=== PATIENT | female | born 1990 | race Caucasian/White ===

== ENCOUNTER 2017-06-26 18:37 | Emergency (ER) | payer OTHER ==
--- NOTE | 2017-06-26 19:13 | PDOC ---
History of Present Illness - General Chief Complaint: Headache Stated Complaint: HEAD PAIN/28 WKS Time Seen by Provider: 06/26/17 19:13
[2017-06-26 19:16] VITALS: BMI 28.8
--- NOTE | 2017-06-26 19:17 | PDOC ---
Rapid Medical Evaluation Chief Complaint: Headache Time Seen by Provider: 06/26/17 19:13 Medical Evaluation: 06/26/17 19:14 CC:headache and vomiting 7 months . denies vaginal bleeding/ O: Patient alert ox 3 headache P: I have ordered cbc, cmp, mag, ua, urine culture. patient to the ER for further management of care.
[2017-06-26 20:07] LABS: BASO % 0.4 % (0-2.0); EOS % 0.9 % (0-4.5); HEMATOCRIT 34.6 % (32.4-45.2); HEMOGLOBIN 12.2 GM/dL (10.7-15.3); LYMPH % 20.4 % (8-40); MCH 31.5 pg (25.7-33.7); MCHC 35.2 g/dl (32.0-36.0); MEAN CELL VOLUME 89.7 fl (80-96); MEAN PLT VOLUME 8.1 fl (7.5-11.1); MONO % 7.4 % (3.8-10.2); NEUT % 70.9 % (42.8-82.8); PLATELET COUNT 290 K/MM3 (134-434); RBC 3.86 M/mm3 (3.60-5.2); RDW 13.6 % (11.6-15.6); WHITE BLOOD COUNT 9.8 K/mm3 (4.0-10.0)
[2017-06-26 20:20] LABS: URINE APPEARANCE CLEAR; URINE BILIRUBIN NEGATIVE (<2.0 mg/dL); URINE BLOOD NEGATIVE (NEGATIVE); URINE COLOR STRAW; URINE GLUCOSE (UA) NEGATIVE (NEGATIVE); URINE KETONE NEGATIVE (NEGATIVE); URINE LEUK ESTERASE NEGATIVE (NEGATIVE); URINE NITRITE NEGATIVE (NEGATIVE); URINE PROTEIN NEGATIVE (NEGATIVE); URINE UROBILINOGEN NEGATIVE mg/dL (0.2-1.0)
[2017-06-26 20:20] LABS: ALBUMIN 3.1 g/dl (3.4-5.0); ANION GAP 7 (8-16); BILIRUBIN,TOTAL 0.2 mg/dL (0.2-1.0); BLOOD UREA NITROGEN 6 mg/dL (7-18); CALCIUM 8.5 mg/dL (8.5-10.1); CHLORIDE 109 mmol/L (98-107); CO2 24 mmol/L (21-32); CREATININE 0.4 mg/dL (0.55-1.02); GLUCOSE,RANDOM 83 mg/dL (74-106); POTASSIUM 3.8 mmol/L (3.5-5.1); SGOT/AST 16 U/L (15-37); SGPT/ALT 13 U/L (12-78); SODIUM 140 mmol/L (136-145); TOT PROT 6.9 g/dl (6.4-8.2)
[2017-06-26 20:35] LABS: ALK PHOS 79 U/L (45-117)
--- NOTE | 2017-06-26 21:36 | PDOC ---
History of Present Illness - History of Present Illness Initial Comments: 06/26/17 21:48 The patient is a 26 year old 28 week female who presents for evaluation of headache, nausea, vomiting. The patient reports a throbbing headache that began gradually earlier this morning. She reports subsequent nausea and 1 episode of non-bilious, non-bloody vomiting prompting her presentation to the ED for evaluation. The patient reports that her symptoms have completely resolved on evaluation in the ED and is currently asymptomatic. The patient otherwise denies fevers, chills, SOB, chest pain, abdominal pain, vaginal bleeding, vaginal discharged, or changes with urination or bowel movements. <Dudley Chappell - Last Filed: 06/26/17 21:48> <Nigel Rey - Last Filed: 06/26/17 23:28> - General Chief Complaint: Headache Stated Complaint: HEAD PAIN/28 WKS Time Seen by Provider: 06/26/17 19:13 Past History - Past Medical History COPD: No - Immunization History Immunization Up to Date: Yes - Suicide/Smoking/Psychosocial Hx Smoking History: Never smoked Have you smoked in the past 12 months: No Information on smoking cessation initiated: No Hx Alcohol Use: No Drug/Substance Use Hx: No Substance Use Type: None <Dudley Chappell - Last Filed: 06/26/17 21:48> <Nigel Rey - Last Filed: 06/26/17 23:28> - Past Medical History Allergies/Adverse Reactions: Allergies Allergy/AdvReac Type Severity Reaction Status Date / Time No Known Allergies Allergy Verified 06/26/17 19:16 Home Medications: Ambulatory Orders Vit/Iron Fum/Folic AC [ Tablet] 1 each PO DAILY 06/26/17 Review of Systems - Review of Systems Comments:: 06/26/17 21:54 Constitutional: No fevers, chills, fatigue, malaise HEENT: No Rhinorrhea, nasal congestion, visual changes Cardiovascular: No chest pain, syncope, palpitations, lightheadedness Respiratory: No Cough, SOB, Hemoptysis, Gastrointestinal: Nausea, vomiting. No Abdominal pain, Constipation, Diarrhea, Melena Genitourinary: No Dysuria, Frequency, Urgency, Hesitancy, Hematuria, Flank pain Musculoskeletal: No Myalgia, arthralgia Skin: No rashes, itching, bruising, pallor Neurologic: Headache. No Dizziness, Numbness, Weakness, or Tingling Psychiatric: No Hallucinations. No SI or HI <Dudley Chappell - Last Filed: 06/26/17 21:48> *Physical Exam - Vital Signs Last Vital Signs Temp Pulse Resp BP Pulse Ox 98.6 F 71 18 110/66 98 06/26/17 19:13 06/26/17 19:13 06/26/17 19:13 06/26/17 19:13 06/26/17 19:13 - Physical Exam Comments: 06/26/17 21:54 General Appearance: Nourished. No Apparent Distress HEENT: EOMI, RAYMOND. No Pharyngeal Erythema, Tonsillar Exudate, Tonsillar Erythema Neck: No Cervical Lymphadenopathy Respiratory/Chest: Lungs Clear, Normal Breath Sounds. No Crackles, Rales, Rhonchi, Wheezing Cardiovascular: Regular Rhythm, Regular Rate. No Murmur, Gallops, Rubs Gastrointestinal/Abdominal: Normal Bowel Sounds, Soft. No Guarding, Rebound, Tenderness Musculoskeletal: No CVA Tenderness Extremity: Normal Capillary Refill Integumentary: Normal Color, Dry, Warm Neurologic: mainspring reverse winder II-XII NML intact, Fully Oriented, Alert, Normal Mood/Affect, Normal Response, Motor Strength 5/5. Normal Finger to Nose and Heel to Sunshine <Dudley Chappell - Last Filed: 06/26/17 21:48> - Vital Signs Last Vital Signs Temp Pulse Resp BP Pulse Ox 98.6 F 71 18 110/66 98 06/26/17 19:13 06/26/17 19:13 06/26/17 19:13 06/26/17 19:13 06/26/17 19:13 <Nigel Rey - Last Filed: 06/26/17 23:28> ED Treatment Course - LABORATORY CBC & Chemistry Diagram: 06/26/17 19:27 06/26/17 19:27 - ADDITIONAL ORDERS Additional order review: Laboratory Results 06/26/17 06/26/17 06/26/17 19:27 19:27 19:15 Sodium 140 Potassium 3.8 Chloride 109 H Carbon Dioxide 24 Anion Gap 7 L BUN 6 L Creatinine 0.4 L Creat Clearance w eGFR > 60 Random Glucose 83 Calcium 8.5 Magnesium 2.1 Total Bilirubin 0.2 AST 16 ALT 13 Alkaline Phosphatase 79 Total Protein 6.9 Albumin 3.1 L Beta HCG, Quant 4049.6 Urine Color Straw Urine Appearance Clear Urine pH 7.0 Ur Specific [place] 1.006 Urine Protein Negative Urine Glucose (UA) Negative Urine Ketones Negative Urine Blood Negative Urine Nitrite Negative Urine Bilirubin Negative Urine Urobilinogen Negative Ur Leukocyte Esterase Negative 06/26/17 19:27 RBC 3.86 MCV 89.7 MCHC 35.2 RDW 13.6 MPV 8.1 Neutrophils % 70.9 Lymphocytes % 20.4 Monocytes % 7.4 Eosinophils % 0.9 Basophils % 0.4 <Dudley Chappell - Last Filed: 06/26/17 21:48> - LABORATORY CBC & Chemistry Diagram: 06/26/17 19:27 06/26/17 19:27 - ADDITIONAL ORDERS Additional order review: Laboratory Results 06/26/17 06/26/17 06/26/17 19:27 19:27 19:15 Sodium 140 Potassium 3.8 Chloride 109 H Carbon Dioxide 24 Anion Gap 7 L BUN 6 L Creatinine 0.4 L Creat Clearance w eGFR > 60 Random Glucose 83 Calcium 8.5 Magnesium 2.1 Total Bilirubin 0.2 AST 16 ALT 13 Alkaline Phosphatase 79 Total Protein 6.9 Albumin 3.1 L Beta HCG, Quant 4049.6 Urine Color Straw Urine Appearance Clear Urine pH 7.0 Ur Specific [place] 1.006 Urine Protein Negative Urine Glucose (UA) Negative Urine Ketones Negative Urine Blood Negative Urine Nitrite Negative Urine Bilirubin Negative Urine Urobilinogen Negative Ur Leukocyte Esterase Negative 06/26/17 19:27 RBC 3.86 MCV 89.7 MCHC 35.2 RDW 13.6 MPV 8.1 Neutrophils % 70.9 Lymphocytes % 20.4 Monocytes % 7.4 Eosinophils % 0.9 Basophils % 0.4 <Nigel Rey - Last Filed: 06/26/17 23:28> Medical Decision Making - Medical Decision Making 06/26/17 21:55 The patient is a 26 year old 28 week female who presents for evaluation of headache, nausea, vomiting. Differential includes but is not limited to: Gastroenteritis, Migraine Headache, Infectious, Metabolic derangement. Labs obtained in triage including a cbc, cmp, ua are unremarkable. The patient remains asymptomatic on exam. It is likely her past symptoms were due to a migraine headache. We will PO challenge the patient here in the ED and continue to monitor and reassess. The patient's authorization rep is Dr. Alfredo. <Dudley Chappell - Last Filed: 06/26/17 21:48> *DC/Admit/Observation/Transfer <Dudley Chappell - Last Filed: 06/26/17 21:48> <Nigel Rey - Last Filed: 06/26/17 23:28> Diagnosis at time of Disposition: Headache Qualifiers: Headache type: unspecified Headache chronicity pattern: acute headache Intractability: not intractable Qualified Code(s): R51 - Headache - Discharge Dispostion Disposition: HOME Condition at time of disposition: Stable - Referrals Referrals: authorization rep, one week [Other] - Patient Instructions Printed Discharge Instructions: DI for Headache
--- NOTE | 2017-06-26 21:51 | PDOC ---
Attending Attestation - Resident Resident Name: Dudley Chappell - ED Attending Attestation I have performed the following: I have examined & evaluated the patient, The case was reviewed & discussed with the resident, I agree w/resident's findings & plan, Exceptions are as noted - Physicial Exam PE: 06/26/17 23:29 EXAMINATION CONSTITUTIONAL: Well-appearing; well-nourished; in no apparent distress HEAD: Normocephalic; atraumatic EYES: PERRL; EOM intact ENMT: External appears normal; normal oropharynx NECK: Supple; non-tender; no cervical lymphadenopathy CARD: Normal S1, S2; no murmurs, rubs, or gallops RESP: Normal chest excursion with respiration; breath sounds clear and equal bilaterally; no wheezes, rhonchi, or rales ABD: Soft, non-distended; non-tender; no palpable organomegaly, no palpable hernias EXT: Normal ROM in all four extremities; non-tender to palpation; distal pulses intact SKIN: Warm, dry, no rash NEURO: - Medical Decision Making 06/26/17 23:30 Patient is a 26-year-old female, 28 weeks gestation by LMP, with history of headaches who presents with atraumatic bitemporal headache associated with an episode of headache that has now resolved. Patient is nonfocal neurologically; patient reports similar headaches associated with vomiting during previous . I do not suspect subarachnoid hemorrhage or And is due her sinus thrombosis at this time. Patient is completely asymptomatic at this time. Her blood pressure is within normal limit. LFTs and platelets are also normal. I do not suspect preeclampsia or help syndrome at this time. Will discharge to labor and delivery for monitoring. No acute issues at this time. <Nigel Rey - Last Filed: 06/26/17 23:29> - HPI HPI: 06/26/17 23:38 The patient is a 26 year old female with no known past medical history presents to the emergency department complaining of headaches and vomiting since morning. The patient reports similar episodes of headaches in the past. The patient reports an episodes of emesis earlier today. - Medical Decision Making 06/26/17 23:38 Documentation prepared by Christie Hebert, acting as medical equipment technician for Nigel Rey MD. <Christie Hebert - Last Filed: 06/26/17 23:38>
[2017-06-26 23:30] VITALS: BP 100/60
[2017-06-27 00:44] VITALS: PULSE 75; TEMP 98.9
== END 2017-06-27 00:35 | disposition home or self-care (01) ==
LOC: JER 18:37
DX: O26.893 Other specified pregnancy related conditions, third trimester (principal); Z3A.28 28 weeks gestation of pregnancy; R51 Headache
CPT/HCPCS: 36415; 80053; 81003; 83735; 84702; 85025; 87086; 99283-25

== ENCOUNTER 2017-09-24 07:55 | Inpatient (IN) | payer OTHER ==
[~2017-09-24 07:55] MED LIST: CITRIC ACID/SODIUM CITRATE 30 ML UNIT-DOSE CUP PO ONE; ELECTROLYTE-148 SOLN 1,000 ML IV SCH
[2017-09-24] MEDS ORDERED: ELECTROLYTE-148 SOLN 1,000 ML IV SCH ×2 (08:25→08:45)
[2017-09-24] MEDS ORDERED: ONDANSETRON 4 MG/2 ML VIAL IVPUSH PRN (08:29)
[2017-09-24 08:34] VITALS: BMI 30.1
[2017-09-24] MEDS ORDERED: CITRIC ACID/SODIUM CITRATE 30 ML UNIT-DOSE CUP PO ONE (08:38)
[2017-09-24] MEDS ORDERED: morphine SULFATE/Preservative Free 0.5 MG/ML (1cc Syringe) ONE (09:24)
[2017-09-24] MEDS ORDERED: BUPIVACAINE 0.75% IN DEXTROSE/PF 2ML AMPULE NR ONE (09:24)
[2017-09-24] MEDS ORDERED: KETOROLAC TROMETHAMINE 30 MG/1 ML VIAL ONE (09:25)
--- NOTE | 2017-09-24 09:36 | HP ---
Past Medical History - Primary Care Physician PCP:: Aman Lorenz - Admission Chief Complaint: 41 WEEKS BY DATE, 39 WEEKS BY SONO , PREVIOUS C/S , REQUEST OF REPEAT C/S History Source: Patient Limitations to Obtaining History: Language Barrier - Past Medical History ...: 2 ...Para: 1 ...Term: 1 ...: 0 ...Spon : 0 ...Induced : 0 ...Multiple Gestation: 0 ...LMP: 12/09/16 ... Weeks Gestation by Dates: 41.2 ...EDC by Dates: 09/15/17 ...EDC by Sono: 09/28/17 - Past Surgical History Hx Myomectomy: No Hx Transabdominal Cerclage: No - Smoking History Smoking history: Never smoked Have you smoked in the past 12 months: No - Alcohol/Substance Use Hx Alcohol Use: No - Social History Usual Living Arrangement: Yes: With Spouse History of Recent Travel: No Home Medications - Allergies Allergies/Adverse Reactions: Allergies Allergy/AdvReac Type Severity Reaction Status Date / Time No Known Allergies Allergy Verified 09/24/17 08:03 - Home Medications Home Medications: Ambulatory Orders Ferrous Sulfate [Feosol] 325 mg PO DAILY 09/24/17 Pnv No.95/Ferrous Fum/Folic AC [ Vitamin Tablet] 1 each PO DAILY Review of Systems - Review of Systems Constitutional: reports: No Symptoms Eyes: reports: No Symptoms HENT: reports: No Symptoms Neck: reports: No Symptoms Cardiovascular: reports: No Symptoms Respiratory: reports: No Symptoms Gastrointestinal: reports: No Symptoms Genitourinary: reports: No Symptoms Breasts: reports: No Symptoms Reported Musculoskeletal: reports: No Symptoms Integumentary: reports: No Symptoms Neurological: reports: No Symptoms Endocrine: reports: No Symptoms Hematology/Lymphatic: reports: No Symptoms Psychiatric: reports: No Symptoms Physical Exam - Maternity Vital Signs: Vital Signs Temperature 98 F 09/24/17 07:55 Pulse Rate 95 H 09/24/17 07:55 Respiratory Rate 09/24/17 07:55 Blood Pressure 108/63 09/24/17 07:55 O2 Sat by Pulse Oximetry (%) Constitutional: Yes: Well Nourished, No Distress, Calm Eyes: Yes: WNL, Conjunctiva Clear, EOM Intact HENT: Yes: WNL, Atraumatic, Normocephalic Neck: Yes: WNL, Supple, Trachea Midline Cardiovascular: Yes: WNL, Regular Rate and Rhythm Breast(s): Yes: WNL - Abdominal Exam/OB Fundal Height: 40 Number of Fetuses: Single Presentation: Vertex Contractions: No Intensity: Unaware Monitor Mode: External Heart Rate Location: [facility] Category: I Accelerations: Uniform Decelerations: None - Vaginal Exam/OB Vaginal Bleediing: No Speculum Exam: No Dilatation (cm): CLOSED Effacement (%): 0 Amniotic Membrane Status: Intact Presentation: Vertex/Position Station: -3 - Physical Exam Edema: Yes Edema: LLE: Trace, RLE: Trace Deep Tendon Reflex Grade: Normal +2 Psychiatric: Yes: WNL Hemorrhage Risk Assessment - Risk Factors Medium Risk Factors: Yes: None High Risk Factors: Yes: None Risk Score: 1 Risk Level: Medium Risk Problem List - Problems (1) with 39 completed weeks gestation Code(s): Z3A.39 - 39 WEEKS GESTATION OF (2) Previous section complicating Code(s): O34.219 - MATERNAL CARE FOR UNSP TYPE SCAR FROM PREVIOUS DEL Assessment/Plan REQUEST OF REPEAT C/S, RISKS DISCUSSED, ENCOURAGED, DECLINED
[2017-09-24] MEDS ORDERED: ePHEDrine SULFATE 50 MG/1 ML AMPULE ONE ×2 (10:42→10:46)
[2017-09-24] MEDS ORDERED: ceFAZolin SODIUM 1 GM VIAL ONE ×2 (10:43→17:47)
[2017-09-24] MEDS ORDERED: SODIUM CHLORIDE 0.9% P/F 10 ML VIAL IJ ONE (10:43)
[2017-09-24] MEDS ORDERED: OXYTOCIN 10 UNITS/ML VIAL ONE (10:45)
[2017-09-24 11:28] LABS: ARTERIAL BLD GAS O2 SATURATION 28.9 % (90-98.9); ARTERIAL BLOOD GAS BASE EXCESS -9.7 meq/l (-2-2); ARTERIAL BLOOD GAS PCO2 78.9 mmHg (35-45); ARTERIAL BLOOD GAS PO2 21.5 mmHg (80-100); ARTERIAL BLOOD GAS pH 7.09 (7.35-7.45)
[2017-09-24] MEDS ORDERED: BENZOCAINE 28 GM HEMORRHOIDAL OINTMENT PR PRN (11:38)
[2017-09-24] MEDS ORDERED: oxyCODONE HCL 5 MG TABLET PO PRN (11:38)
[2017-09-24] MEDS ORDERED: WITCH HAZEL 50% (TUCKS) 40 PAD/JAR PAD TP PRN (11:38)
[2017-09-24] MEDS ORDERED: METHYLERGONOVINE MALEATE 0.2 MG/1 ML AMP IM PRN (11:38)
[2017-09-24] MEDS ORDERED: diphenhydrAMINE HCL 25 MG CAPSULE (FP) PO PRN (11:38)
[2017-09-24] MEDS ORDERED: IBUPROFEN 800 MG/8 ML IJ IVPB PRN (11:38)
[2017-09-24] MEDS ORDERED: BENZOCAINE 20% 57 GM BOTTLE TP PRN (11:38)
[2017-09-24 11:42] LABS: VENOUS PC02 66.2 mmHg (38-52); VENOUS PH 7.19 (7.32-7.42); VENOUS PO2 16.1 mmHg (28-48)
[2017-09-24] MEDS ORDERED: OXYTOCIN 20 UNITS in 0.9% NS 20 UNIT/1,000 ML INFUS.BAG IV SCH (11:45)
[2017-09-24] MEDS ORDERED: DEXTROSE 5%-LACTATED RINGERS 1,000 ML IV SCH (11:45)
--- NOTE | 2017-09-24 12:39 | SURG ---
Surgery Pharmaceutical Plant Operator Note Pharmaceutical Plant Operator: David Smith PA-C Date of Service: 09/24/17 Diagnosis: repeat cesarian section Procedure: Cesarian section I was present for the entirety of the operative procedure. For further detail, please refer to operative report.
--- NOTE | 2017-09-24 17:15 | OP ---
DATE OF OPERATION: 09/24/2017 PREOPERATIVE DIAGNOSIS: , 39 weeks; previous section, requests a repeat section. POSTOPERATIVE DIAGNOSIS: , 39 weeks; previous section, requests a repeat section. PROCEDURE: Repeat low segment transverse section. SURGEON: Aman Lorenz MD ELECTRICAL INSTRUMENT TECHNICIAN: ANESTHESIA: Spinal. ANESTHESIOLOGIST: ESTIMATED BLOOD LOSS: 500 mL. FINDINGS: A live baby boy, Apgars 8 and 9. DESCRIPTION OF PROCEDURE: The patient was taken to the operating room. Under adequate spinal anesthesia, the abdomen and perineum were prepped and draped. A Pfannenstiel abdominal skin incision was made. The abdominal wall was cut layer by layer until the peritoneum was exposed and incised. Upon entering the abdominal cavity, the lower uterine segment was identified and uterovesical fold of peritoneum was established. The bladder was pushed down. A low transverse incision was made and the incision extended laterally. The amniotic sac was entered with clear fluid. Head appeared to be deflexed with the hand in front of the head. Fundal pressure was applied to the head because of the deflexed head. The head was not able to be delivered. The hand was then reduced. There were two loops of cord felt around the neck. At this time, after several trials of pressing on the fundus to deliver the head and being unable, the uterine incision was extended laterally and then a Kiwi vacuum was applied. With the first try, the Kiwi popped off. Then, the incision again was extended laterally and then with the second fundal pressure, the head was delivered. There were two loops of cord around the neck which were reduced and the baby boy was delivered without any difficulty after that. The placenta was delivered manually. The uterine cavity was cleaned of all remaining tissues. The incision was closed in two layers, the first layer with 0-Vicryl continuous suture, the second layer with 0-Vicryl imbricating the first layer. The bladder flap was closed with 0-Biosyn continuous suture. Both tubes and ovaries were checked and were normal. No active bleeding was seen. All the lap, sponge and instrument counts were correct. Then, the peritoneum was closed with 0-Biosyn continuous suture. The muscle layer was brought together with interrupted suture of 0-Biosyn. The fascia was closed with 0-Biosyn continuous suture, subcutaneous fat with interrupted suture of 0-Biosyn and the skin was closed with 3-0 subcuticular Vicryl suture. The patient tolerated the procedure well and left the OR in good condition. Selena [id number]
[2017-09-24] MEDS ORDERED: DEXTROSE 5%-WATER - 50 ML IVPB ONE (17:47)
[2017-09-24] MEDS: CEFAZOLIN 1 GM in DEXTROSE 5%-WATER - 50 ML IVPB SCH (18:17)
[2017-09-25] MEDS ORDERED: ceFAZolin SODIUM 1 GM VIAL ONE (02:12)
[2017-09-25] MEDS ORDERED: DEXTROSE 5%-WATER - 50 ML IVPB ONE (02:12)
[2017-09-25] MEDS: CEFAZOLIN 1 GM in DEXTROSE 5%-WATER - 50 ML IVPB SCH (02:22)
[2017-09-25 07:56] LABS: BASO % 0.3 % (0-2.0); EOS % 0.7 % (0-4.5); HEMATOCRIT 31.5 % (32.4-45.2); MCH 31.1 pg (25.7-33.7); MEAN CELL VOLUME 88.9 fl (80-96); MEAN PLT VOLUME 8.6 fl (7.5-11.1); MONO % 6.6 % (3.8-10.2); NEUT % 80.4 % (42.8-82.8); PLATELET COUNT 189 K/MM3 (134-434); RBC 3.54 M/mm3 (3.60-5.2); RDW 14.4 % (11.6-15.6); WHITE BLOOD COUNT 9.4 K/mm3 (4.0-10.0)
[2017-09-25] MEDS: oxyCODONE HCL 5 MG TABLET PO PRN ×3 (08:02→18:31)
[2017-09-25] MEDS: IBUPROFEN 600 MG TABLET (FP) PO PRN ×3 (08:04→18:32)
[2017-09-25] MEDS: SIMETHICONE 80 MG TAB.CHEW (FP) PO PRN ×3 (08:04→18:33)
--- NOTE | 2017-09-25 09:38 | PN ---
Progress Note, Physician Chief Complaint: s/p c section with spinal anesthesia History of Present Illness: post op day one with duramorph for post op pain control - Current Medication List Current Medications: Active Medications Benzocaine (Americaine 20% Smyer -) 1 spray TP PRN PRN PRN Reason: Pain - Topical Benzocaine (Americaine Ointment -) 1 applic KS PRN PRN PRN Reason: Pain - Topical Bisacodyl (Dulcolax Suppository -) 10 mg RC PRN PRN PRN Reason: CONSTIPATION Diphenhydramine HCl (Benadryl Injection -) 25 mg IVPUSH Q4H PRN PRN Reason: Pruritis Diphenhydramine HCl (Benadryl -) 25 mg PO Q8H PRN PRN Reason: FOR ITCHING Parenteral Electrolytes (Plasma-Lyte 148 -) 1,000 mls @ 125 mls/hr IV ASDIR ALO Parenteral Electrolytes (Plasma-Lyte 148 -) 1,000 mls @ 125 mls/hr IV ASDIR ALO Last Admin: 09/24/17 08:57 Dose: 125 mls/hr Dextrose/Lactated Ringer's (D5-Lr -) 1,000 mls @ 125 mls/hr IV ASDIR ALO Ibuprofen (Motrin -) 600 mg PO Q4H PRN PRN Reason: PAIN LEVEL 1 - 3 Last Admin: 09/25/17 08:04 Dose: 600 mg Ibuprofen (Caldolor Injection -) 800 mg IVPB Q6H PRN PRN Reason: PAIN > 5 if PO not effective. Methylergonovine Maleate (Methergine Injection -) 0.2 mg IM Q4H PRN PRN Reason: EXCESSIVE BLEEDING Ondansetron HCl (Zofran Injection) 4 mg IVPUSH Q4H PRN PRN Reason: NAUSEA Oxycodone HCl (Roxicodone -) 5 mg PO Q4H PRN PRN Reason: PAIN LEVEL 4 - 6 Last Admin: 09/25/17 08:02 Dose: 5 mg Oxycodone HCl (Roxicodone -) 10 mg PO Q4H PRN PRN Reason: PAIN LEVEL 7 - 10 Senna/Docusate Sodium (Pericolace -) 2 tablet PO HS PRN PRN Reason: CONSTIPATION Simethicone (Mylicon -) 80 mg PO Q4H PRN PRN Reason: GAS Last Admin: 09/25/17 08:04 Dose: 80 mg Witch Rufina/Glycerin (Tucks Pads -) 1 pad TP PRN PRN PRN Reason: Pain - Topical - Objective Vital Signs: Vital Signs Temperature 98.2 F 09/25/17 07:30 Pulse Rate 73 09/25/17 07:30 Respiratory Rate 18 09/25/17 09:00 Blood Pressure 108/63 09/25/17 07:30 O2 Sat by Pulse Oximetry (%) 100 09/24/17 21:00 Constitutional: Yes: Well Nourished Cardiovascular: Yes: WNL Respiratory: Yes: WNL Gastrointestinal: Yes: WNL Labs: CBC, BMP 09/25/17 07:05 Assessment/Plan No complications from anesthesia, no nausea or vomiting, no further intervention from the dept of anesthesia at this time.
--- NOTE | 2017-09-25 11:19 | PN ---
Progress Note (short form) - Note Progress Note: pod 1 doing well, no c/o CBC, BMP 09/25/17 07:05 Last Vital Signs Temp Pulse Resp BP Pulse Ox 98.2 F 73 18 108/63 100 09/25/17 07:30 09/25/17 07:30 09/25/17 10:00 09/25/17 07:30 09/24/17 21:00 abdomen soft, no distension , no cva incision dry, clean lochia mild no calf tenderness plan ambulate , advance diet Problem List - Problems (1) with 39 completed weeks gestation Code(s): Z3A.39 - 39 WEEKS GESTATION OF (2) Previous section complicating Code(s): O34.219 - MATERNAL CARE FOR UNSP TYPE SCAR FROM PREVIOUS DEL
[2017-09-25] MEDS ORDERED: BISACODYL 10 MG SUPP.RECT RC PRN (11:38)
[2017-09-26] MEDS: ACETAMINOPHEN 325 MG TABLET (FP) PO PRN (05:50)
[2017-09-26] MEDS: SIMETHICONE 80 MG TAB.CHEW (FP) PO PRN ×4 (05:50→19:56)
[2017-09-26] MEDS: IBUPROFEN 600 MG TABLET (FP) PO PRN ×4 (05:51→19:55)
[2017-09-26] MEDS: oxyCODONE HCL 5 MG TABLET PO PRN ×3 (10:00→19:55)
--- NOTE | 2017-09-26 10:39 | OP ---
DATE OF OPERATION: 09/24/2017 PREOPERATIVE DIAGNOSIS: at 39 weeks, previous section, requesting repeat section. POSTOPERATIVE DIAGNOSIS: at 39 weeks, previous section, requesting repeat section. PROCEDURE: Repeat low segment transverse section. SURGEON: Aman Lorenz MD MASTER CONTROL ENGINEER: David Smith PA-C ANESTHESIA: Spinal. ESTIMATED BLOOD LOSS: 500 mL. DESCRIPTION OF PROCEDURE: Patient was taken to the operating room under adequate spinal anesthesia. Abdomen and perineum was prepped and draped. Pfannenstiel abdominal skin incision was made. Abdominal wall was cut layer by layer until the peritoneum was exposed and incised. Upon entry to the abdominal cavity, lower uterine segment was identified and uterovesical fold of peritoneum was established. Bladder was pushed down. With a low blade, this was retracted into the pelvis and a low transverse uterine incision was made. The incision was extended laterally and amniotic sac was entered with clear fluid. Head was deflexed with a hand in front of the head, the incision. The hand was reduced and after several fundal pressures, the head was difficult to deliver. Therefore, A Kiwi vacuum was applied at the occiput and head was delivered with 2 loops of cord around the neck reduced. Live baby boy was delivered without any difficulty. Apgars 8 and 9. Placenta was delivered manually. Uterine cavity was cleaned of all remaining tissue. Uterine incision was closed in 2 layers; first layer with 0 Biosyn continuous suture and the second layer with 0 Biosyn imbricating the first layer. Bladder flap was closed with 0 Biosyn continuous suture. Both tubes and ovaries were checked and were normal. No active bleeding was seen. All of the lap, sponge, and instrument counts were correct. Peritoneum was closed with 0 Biosyn continuous suture. Muscles were brought together with interrupted suture of 0 Biosyn. Fascia was closed with 0 Biosyn continuous sutures, subcutaneous fat interrupted suture of 0 Biosyn, and skin was closed with 3-0 Vicryl subcuticular continuous suture. Patient tolerated the procedure well. Left the OR in good condition. Selena [id number]
--- NOTE | 2017-09-26 14:06 | PATH ---
Surgical Pathology Report Patient Name: ENA PURDY Med. Rec. #: [id number] /Age/Gender: 1990 (Age: 26) / F Account: [id number] Location: [facility] OBS/[facility] PULLER Taken: 09/24/2017 Received: 09/25/2017 Reported: 09/26/2017 Physicians: Aman Lorenz M.D. Specimen(s) Received PLACENTA Clinical History 39.3 weeks, repeat , marginal cord insertion Final Diagnosis PLACENTA, SECTION: 471 g THIRD TRIMESTER PLACENTA WITH TRIVASCULAR UMBILICAL CORD AND UNREMARKABLE PLACENTAL MEMBRANES. Electronically Signed Noris Chairez M.D. Gross Description The specimen is received fresh labeled placenta and is a 471 gram, 19 x16 x 1.5 cm placenta with attached membranes and umbilical cord. The attached membranes are glistening, translucent, and insert marginally. The umbilical cord measures 19 cm. in length and averages 1.5 cm. in diameter. The cord inserts marginally. No true knots or strictures are identified. Cut surface of the umbilical cord reveals 3 vessels. Sectioning reveals red-brown, spongy parenchyma. No lesions are identified. Veneer Stacker sections are submitted in three cassettes as follows: 1- membrane rolls and umbilical cord; 2-3- full thickness sections of placenta KWS/09/25/2017 sulki/09/25/2017
[2017-09-26] MEDS ORDERED: SENNOSIDES/DOCUSATE COMBO (SENNA PLUS) TABLET (UD) PO PRN (22:00)
--- NOTE | 2017-09-26 22:18 | PN ---
Progress Note (short form) - Note Progress Note: pod 2 doing well, no c/o ,voids ok, passing gas CBC, BMP 09/25/17 07:05 Last Vital Signs Temp Pulse Resp BP Pulse Ox 98.7 F 81 18 111/63 100 09/26/17 21:11 09/26/17 21:11 09/26/17 21:11 09/26/17 21:11 09/24/17 21:00 abdomen soft, no distension, no cva incision dry, clean no calf tenderness plan cbc in am ambulate Problem List - Problems (1) with 39 completed weeks gestation Code(s): Z3A.39 - 39 WEEKS GESTATION OF (2) Previous section complicating Code(s): O34.219 - MATERNAL CARE FOR UNSP TYPE SCAR FROM PREVIOUS DEL
[2017-09-26] MEDS ORDERED: guaiFENesin 200 MG/10 ML 10 ML UNIT-DOSE CUPS PO PRN (22:45)
[2017-09-27] MEDS: SIMETHICONE 80 MG TAB.CHEW (FP) PO PRN ×3 (02:06→15:41)
[2017-09-27] MEDS: oxyCODONE HCL 5 MG TABLET PO PRN ×2 (02:07→09:00)
[2017-09-27] MEDS: IBUPROFEN 600 MG TABLET (FP) PO PRN ×3 (02:08→15:40)
--- NOTE | 2017-09-27 07:06 | PN ---
Progress Note (short form) - Note Progress Note: pod 3 , has occasional dry cough , cold symptoms,no dyspnia, no chest pain, ambulating well CBC, BMP 09/25/17 07:05 Last Vital Signs Temp Pulse Resp BP Pulse Ox 98.7 F 81 18 111/63 100 09/26/17 21:11 09/26/17 21:11 09/26/17 21:11 09/26/17 21:11 09/24/17 21:00 abdomen soft , no distension, no cva ,BS present incision dry, clean no calf tenderness plan ambulate , cbc robitussin prn , if cough worsen will get CXR Problem List - Problems (1) with 39 completed weeks gestation Code(s): Z3A.39 - 39 WEEKS GESTATION OF (2) Previous section complicating Code(s): O34.219 - MATERNAL CARE FOR UNSP TYPE SCAR FROM PREVIOUS DEL
[2017-09-27 08:35] LABS: BASO % 0.6 % (0-2.0); EOS % 1.2 % (0-4.5); HEMATOCRIT 33.1 % (32.4-45.2); HEMOGLOBIN 11.6 GM/dL (10.7-15.3); MCH 31.3 pg (25.7-33.7); MCHC 34.9 g/dl (32.0-36.0); MEAN CELL VOLUME 89.6 fl (80-96); MEAN PLT VOLUME 8.4 fl (7.5-11.1); MONO % 5.9 % (3.8-10.2); NEUT % 67.3 % (42.8-82.8); PLATELET COUNT 231 K/MM3 (134-434); RDW 14.3 % (11.6-15.6); WHITE BLOOD COUNT 8.2 K/mm3 (4.0-10.0)
[2017-09-27] MEDS: ACETAMINOPHEN 325 MG TABLET (FP) PO PRN (15:40)
[2017-09-28 09:27] VITALS: BP 107/68; PULSE 73; TEMP 98.7
[2017-09-28] MEDS: IBUPROFEN 600 MG TABLET (FP) PO PRN (09:37)
[2017-09-28] MEDS: ACETAMINOPHEN 325 MG TABLET (FP) PO PRN (09:38)
--- NOTE | 2017-09-30 17:54 | DS ---
Physical Exam-PREVENTIVE MAINTENANCE COORDINATOR Vital Signs: Vital Signs Temperature 98.7 F 09/28/17 09:18 Pulse Rate 73 09/28/17 09:18 Respiratory Rate 20 09/28/17 09:18 Blood Pressure 107/68 09/28/17 09:18 O2 Sat by Pulse Oximetry (%) 100 09/24/17 21:00 Constitutional: Yes: Well Nourished, No Distress, Calm Eyes: Yes: WNL, Conjunctiva Clear, EOM Intact HENT: Yes: WNL, Atraumatic, Normocephalic Neck: Yes: WNL, Supple, Trachea Midline Cardiovascular: Yes: WNL, Regular Rate and Rhythm Respiratory: Yes: WNL, Regular, CTA Bilaterally Gastrointestinal: Yes: WNL ...Rectal Exam: Yes: WNL Renal/: Yes: WNL ....Post : Yes: Uterus firm, Uterus non-tender, Slight lochia rubra Breast(s): Yes: WNL Musculoskeletal: Yes: WNL Extremities: Yes: WNL Edema: No Integumentary: Yes: WNL Wound/Incision: Yes: Clean/Dry, Well Approximated, Sutures Intact Neurological: Yes: WNL, Alert, Oriented ...Motor Strength: WNL Psychiatric: Yes: WNL, Alert, Oriented Labs: CBC, BMP 09/27/17 07:20 Delivery - Delivery Section: Repeat, Low Flap Transverse (no complication) Type of Anesthesia: Spinal Episiotomy/Laceration: None EBL (cc): 500 Delivery, Single - Stages of Labor Date of Delivery: 09/24/17 Time of Delivery: 10:57 Time Placenta Delivered: 10:58 Placenta: Yes: Expressed - Condition of Senior Clinician/Video Manager Present: Yes Name: Nish Forman Infant Gender: Male Weight: 7 lb 10 oz Position: Right, OP Total Hours ROM (Hrs/Mins): 3MIN - 1 Minute Total Score: 8 5 Minutes Total Score: 9 - [place] Feeding Plan Initial Plan: Elected not to breastfeed exclusively throughout hospitalization Discharge Summary Reason For Visit: Procedures: Principal: repeat LST c/s Hospital Course: no complication Condition: Good - Instructions Disposition: HOME - Home Medications Comprehensive Discharge Medication List: Ambulatory Orders Ferrous Sulfate [Feosol] 325 mg PO DAILY 09/24/17 Pnv No.95/Ferrous Fum/Folic AC [ Vitamin Tablet] 1 each PO DAILY Ibuprofen [Ibu] 800 mg PO TID PRN 10 Days #40 tablet 09/28/17
== END 2017-09-28 11:30 | disposition home or self-care (01) | DRG 540 ==
LOC: JLDR 07:55 → J3W 13:33
PROVIDERS: ADMIT Obstetrics & Gynecology; ATTEND Obstetrics & Gynecology
PROC: 10D00Z1 Extraction of Products of Conception, Low, Open Approach (ICD-10-PCS; principal; 2017-09-24)
DX: O34.211 Maternal care for low transverse scar from previous cesarean delivery (principal); O69.81X0 Labor and delivery complicated by cord around neck, without compression, not applicable or unspecified; Z3A.39 39 weeks gestation of pregnancy; Z37.0 Single live birth
CPT/HCPCS: 36415; 36600; 82803; 85025; 88307-TC; 94010

== ENCOUNTER 2020-08-18 12:20 | Inpatient (IN) | payer OTHER ==
[2020-08-18] MEDS: ELECTROLYTE-148 SOLN 1,000 ML IV SCH (12:30)
[2020-08-18] MEDS ORDERED: CITRIC ACID/SODIUM CITRATE 30 ML UNIT-DOSE CUP PO ONE (12:47)
[2020-08-18 13:28] VITALS: BMI 29.5
[2020-08-18] MEDS ORDERED: OXYTOCIN 20 UNITS in 0.9% NS 20 UNIT/1,000 ML INFUS.BAG IV ONE (13:55)
[2020-08-18] MEDS ORDERED: morphine SULFATE/PF 0.5 MG/ML (2cc Syringe - QUVA) ONE (13:56)
[2020-08-18] MEDS ORDERED: ceFAZolin SODIUM 1 GM VIAL ONE (14:57)
[2020-08-18] MEDS ORDERED: GLYCOPYRROLATE 0.2 MG/1 ML VIAL ONE (14:57)
[2020-08-18] MEDS ORDERED: KETOROLAC TROMETHAMINE 30 MG/1 ML VIAL ONE (14:57)
[2020-08-18] MEDS ORDERED: DEXAMETHASONE SOD PHOSPHATE 4 MG/1 ML VIAL ONE (14:57)
[2020-08-18] MEDS ORDERED: ONDANSETRON 4 MG/2 ML VIAL ONE (14:57)
[2020-08-18] MEDS ORDERED: PHENYLEPHRINE HCL 10 MG/1 ML SINGLE DOSE VIAL ONE (14:57)
[2020-08-18] MEDS ORDERED: ONDANSETRON 4 MG/2 ML VIAL IVPUSH PRN (15:11)
[2020-08-18] MEDS ORDERED: morphine SULFATE/PF 0.5 MG/ML (2cc Syringe - QUVA) EP ONE (15:11)
[2020-08-18 15:29] LABS: CORD BASE EXCESS -3.7 mmol/L (0-2); CORD HCO3 22.9 mmHg (20-29); CORD PCO2 47.1 mmHg (30-78); CORD pH 7.305 (7.14-7.44)
[2020-08-18 15:32] LABS: CORD HCO3 23.9 mmHg (20-29); CORD PCO2 56.2 mmHg (30-78); CORD pH 7.247 (7.14-7.44)
[2020-08-18] MEDS ORDERED: oxyCODONE HCL 5 MG TABLET PO PRN ×2 (16:37)
[2020-08-18] MEDS ORDERED: diphenhydrAMINE HCL 25 MG CAPSULE (FP) PO PRN (16:37)
[2020-08-18] MEDS ORDERED: IBUPROFEN 800 MG/8 ML IJ IVPB PRN (16:37)
[2020-08-18] MEDS ORDERED: BENZOCAINE 20% 57 GM BOTTLE TP PRN (16:37)
[2020-08-18] MEDS ORDERED: WITCH HAZEL 50% (TUCKS) 40 PAD/JAR PAD TP PRN (16:37)
[2020-08-18] MEDS ORDERED: BENZOCAINE 28 GM HEMORRHOIDAL OINTMENT PR PRN (16:37)
[2020-08-18] MEDS ORDERED: METHYLERGONOVINE MALEATE 0.2 MG/1 ML AMP IM PRN (16:37)
[2020-08-18] MEDS ORDERED: DEXTROSE 5%-LACTATED RINGERS 1,000 ML IV SCH (16:45)
[2020-08-18] MEDS ORDERED: OXYTOCIN 20 UNITS in 0.9% NS 20 UNIT/1,000 ML INFUS.BAG IV SCH (16:45)
[2020-08-18] MEDS: CEFAZOLIN 1 GM/D5W 1 GM/50 ML BAG IVPB SCH (17:41)
[2020-08-19] MEDS: CEFAZOLIN 1 GM/D5W 1 GM/50 ML BAG IVPB SCH (03:48)
[2020-08-19] MEDS ORDERED: DIPHTH,PERTUSS(ACELL),TET 0.5 ML DISP.SYRIN IM ONE (08:00)
[2020-08-19 08:17] LABS: BASO % 0.3 % (0-2.0); EOS % 0.3 % (0-4.5); HEMATOCRIT 35.1 % (32.4-45.2); HEMOGLOBIN 11.6 GM/dL (10.7-15.3); LYMPH % 18.4 % (8-40); MCH 28.5 pg (25.7-33.7); MCHC 33.1 g/dl (32.0-36.0); MEAN CELL VOLUME 86.2 fl (80-96); MEAN PLT VOLUME 8.3 fl (7.5-11.1); MONO % 8.3 % (3.8-10.2); NEUT % 72.7 % (42.8-82.8); PLATELET COUNT 203 10^3/uL (134-434); RBC 4.07 M/mm3 (3.60-5.2); WHITE BLOOD COUNT 9.8 K/mm3 (4.0-10.0)
[2020-08-19] MEDS: IBUPROFEN 600 MG TABLET (FP) PO PRN ×2 (08:46→16:40)
[2020-08-19] MEDS: ACETAMINOPHEN 325 MG TABLET (FP) PO PRN ×2 (08:47→16:41)
[2020-08-19] MEDS: ENOXAPARIN NA (PORCINE) 40 MG/0.4 ML DISP.SYRIN SQ SCH (09:53)
[2020-08-19] MEDS ORDERED: BISACODYL 10 MG SUPP.RECT PR PRN (16:37)
[2020-08-20] MEDS: IBUPROFEN 600 MG TABLET (FP) PO PRN ×2 (03:01→13:54)
[2020-08-20] MEDS: ACETAMINOPHEN 325 MG TABLET (FP) PO PRN ×2 (03:02→13:54)
[2020-08-20] MEDS: SIMETHICONE 80 MG TAB.CHEW (FP) PO PRN ×2 (03:03→13:55)
[2020-08-20] MEDS: ENOXAPARIN NA (PORCINE) 40 MG/0.4 ML DISP.SYRIN SQ SCH (09:06)
[2020-08-20] MEDS: ELECTROLYTE-148 SOLN 1,000 ML IV SCH (13:49)
[2020-08-20] MEDS ORDERED: SENNOSIDES/DOCUSATE COMBO (SENNA PLUS) TABLET (UD) PO PRN (22:00)
[2020-08-21] MEDS: SIMETHICONE 80 MG TAB.CHEW (FP) PO PRN (06:13)
[2020-08-21] MEDS: ACETAMINOPHEN 325 MG TABLET (FP) PO PRN (06:14)
[2020-08-21] MEDS: IBUPROFEN 600 MG TABLET (FP) PO PRN (06:14)
[2020-08-21] MEDS: ENOXAPARIN NA (PORCINE) 40 MG/0.4 ML DISP.SYRIN SQ SCH (09:12)
[2020-08-21 10:31] VITALS: BP 121/77; PULSE 88; TEMP 98.2
[2020-08-21 12:11] LABS: BASO % 0.9 % (0-2.0); EOS % 0.6 % (0-4.5); HEMATOCRIT 34.5 % (32.4-45.2); HEMOGLOBIN 11.7 GM/dL (10.7-15.3); MCH 29.2 pg (25.7-33.7); MCHC 33.9 g/dl (32.0-36.0); MEAN CELL VOLUME 86.2 fl (80-96); MEAN PLT VOLUME 8.5 fl (7.5-11.1); MONO % 5.5 % (3.8-10.2); PLATELET COUNT 235 10^3/uL (134-434); RBC 4.01 M/mm3 (3.60-5.2); WHITE BLOOD COUNT 8.9 K/mm3 (4.0-10.0)
== END 2020-08-21 13:10 | disposition home or self-care (01) | DRG 540 ==
LOC: JLDR 12:20 → J3W 16:53
PROVIDERS: ADMIT Obstetrics & Gynecology; ATTEND Obstetrics & Gynecology
PROC: 10D00Z1 Extraction of Products of Conception, Low, Open Approach (ICD-10-PCS; principal; 2020-08-18)
DX: O34.211 Maternal care for low transverse scar from previous cesarean delivery (principal); Z3A.39 39 weeks gestation of pregnancy; Z37.0 Single live birth
CPT/HCPCS: 36415; 36600; 82803; 85025; 88307-TC; 90715

== ENCOUNTER 2021-08-17 02:10 | Emergency (ER) | payer OTHER ==
[2021-08-17 03:23] VITALS: BP 94/69; PULSE 71; TEMP 97.1; BMI 27.4
[2021-08-17] MEDS ORDERED: FAMOTIDINE 20 MG/50 ML IVPB 20 MG/50 ML MG IVPB ONE ×2 (03:38→03:43)
[2021-08-17] MEDS ORDERED: MAG HYDROX/AL HYDROX/SIMETH -MYLANTA- ORAL SUSPENSION PO ONE (03:38)
[2021-08-17] MEDS ORDERED: ACETAMINOPHEN 1000 MG/100 ML BAG IVPB ONE (03:39)
[2021-08-17] MEDS ORDERED: MAG HYDROX/AL HYDROX/SIMETH 30 ML UNIT-DOSE CUP ONE (03:43)
[2021-08-17] MEDS ORDERED: ACETAMINOPHEN INJECTION 100 ML IVPB ONE (03:43)
[2021-08-17 04:31] LABS: BASO % 0.5 % (0-2.0); EOS % 2.7 % (0-4.5); HEMATOCRIT 39.8 % (32.4-45.2); HEMOGLOBIN 13.7 GM/dL (10.7-15.3); MCH 28.9 pg (25.7-33.7); MCHC 34.4 g/dl (32.0-36.0); MEAN PLT VOLUME 7.8 fl (7.5-11.1); MONO % 7.5 % (3.8-10.2); NEUT % 56.3 % (42.8-82.8); PLATELET COUNT 330 10^3/uL (134-434); RBC 4.73 M/mm3 (3.60-5.2); RDW 13.8 % (11.6-15.6); WHITE BLOOD COUNT 8.2 K/mm3 (4.0-10.0)
[2021-08-17 04:33] LABS: URINE APPEARANCE CLOUDY; URINE BILIRUBIN NEGATIVE (NEGATIVE); URINE COLOR YELLOW; URINE GLUCOSE (UA) NEGATIVE (NEGATIVE); URINE KETONE NEGATIVE (NEGATIVE); URINE LEUK ESTERASE NEGATIVE (NEGATIVE); URINE NITRITE NEGATIVE (NEGATIVE); URINE PROTEIN NEGATIVE (NEGATIVE); URINE UROBILINOGEN 0.2 mg/dL (0.2-1.0)
[2021-08-17 04:48] LABS: CHLORIDE 106 mmol/L (98-107); SODIUM 140 mmol/L (136-145)
[2021-08-17 04:50] LABS: ANION GAP 7 MMOL/L (8-16); BLOOD UREA NITROGEN 11.9 mg/dL (7-18); CO2 26 mmol/L (21-32); GLUCOSE,RANDOM 100 mg/dL (74-106); LIPASE 162 U/L (73-393)
[2021-08-17 04:54] LABS: CREATININE 0.6 mg/dL (0.55-1.3); SGOT/AST 41 U/L (15-37); SGPT/ALT 30 U/L (13-61)
[2021-08-17 04:55] LABS: BILIRUBIN,TOTAL 0.4 mg/dL (0.2-1)
[2021-08-17] MEDS ORDERED: KETOROLAC TROMETHAMINE 30 MG/1 ML VIAL IVPUSH ONE (04:55)
[2021-08-17 04:56] LABS: ALK PHOS 100 U/L (45-117)
== END 2021-08-17 06:21 | disposition home or self-care (01) ==
LOC: JER 02:10
PROC: 3E0333Z Introduction of Anti-inflammatory into Peripheral Vein, Percutaneous Approach (ICD-10-PCS; principal; 2021-08-17)
PROC: 3E033GC Introduction of Other Therapeutic Substance into Peripheral Vein, Percutaneous Approach (ICD-10-PCS; 2021-08-17)
PROC: 3E0333Z Introduction of Anti-inflammatory into Peripheral Vein, Percutaneous Approach (ICD-10-PCS; 2021-08-17)
DX: R10.13 Epigastric pain (principal)
CPT/HCPCS: 36415; 80053; 81003; 83690; 84484; 84703; 85025; 87086; 99284-25

== ENCOUNTER 2022-08-25 20:08 | Emergency (ER) | payer OTHER ==
[2022-08-25 20:24] VITALS: BP 118/80; PULSE 87; RESP 18; TEMP 98.9; BMI 30.1
[2022-08-25] MEDS ORDERED: ACETAMINOPHEN 1000 MG/100 ML BAG IVPB ONE (21:23)
[2022-08-25] MEDS ORDERED: SODIUM CHLORIDE 0.9% 500 ML INFUS.BAG IV ONE (21:23)
[2022-08-25] MEDS ORDERED: ACETAMINOPHEN INJECTION 100 ML IVPB ONE (22:11)
[2022-08-25 22:41] LABS: BASO % 0.7 % (0-2.0); EOS % 1.9 % (0-4.5); HEMATOCRIT 35.3 % (32.4-45.2); HEMOGLOBIN 11.7 GM/dL (10.7-15.3); LYMPH % 19.6 % (8-40); MCH 26.5 pg (25.7-33.7); MCHC 33.1 g/dl (32.0-36.0); MEAN CELL VOLUME 79.8 fl (80-96); MEAN PLT VOLUME 7.7 fl (7.5-11.1); MONO % 6.1 % (3.8-10.2); NEUT % 71.7 % (42.8-82.8); PLATELET COUNT 312 10^3/uL (134-434); RBC 4.42 M/mm3 (3.60-5.2); RDW 15.3 % (11.6-15.6); WHITE BLOOD COUNT 12.3 K/mm3 (4.0-10.0)
[2022-08-25 22:59] LABS: POTASSIUM 3.7 mmol/L (3.5-5.1)
[2022-08-25 23:01] LABS: CALCIUM 8.8 mg/dL (8.5-10.1)
[2022-08-25 23:02] LABS: ALBUMIN 3.7 g/dl (3.4-5.0); MAGNESIUM 2.4 mg/dL (1.8-2.4)
[2022-08-25 23:05] LABS: CREATININE 0.6 mg/dL (0.55-1.3)
[2022-08-25 23:07] LABS: BILIRUBIN,TOTAL 0.2 mg/dL (0.2-1)
== END 2022-08-26 01:03 | disposition home or self-care (01) ==
LOC: JER 20:08
PROC: 3E033NZ Introduction of Analgesics, Hypnotics, Sedatives into Peripheral Vein, Percutaneous Approach (ICD-10-PCS; principal; 2022-08-25)
DX: R07.89 Other chest pain (principal); R51.9 Headache, unspecified; R53.83 Other fatigue; R42 Dizziness and giddiness; Z20.822 Contact with and (suspected) exposure to COVID-19
CPT/HCPCS: 0241U-QW; 36415; 71046-TC-FY; 80053; 80061; 83036; 83735; 84443; 84484; 85025; 93005; 93010; 99285-25